=== PATIENT | male | born 1955 | race Caucasian/White ===

== ENCOUNTER 2021-12-03 21:47 | Emergency (ER) | payer BC ==
[~2021-12-03] VITALS: Ht 177.8 cm; Wt 81.6 kg
--- NOTE | 2021-12-03 22:30 | NUR ---
PATIENT BIBRA 85 FROM HOME C/O SLIP AND FELL IN SHOWER +ETOH, MINOR LAC ON L EYE. -THINNERS. PATIENT IS A/O X 3, RR EVEN AND UNLABORED NO SOB NOTED. PATIENT TAKEN TO ER BED 04. PATIENT CONNECTED TO MONITORS.
--- NOTE | 2021-12-03 22:39 | NUR ---
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
--- NOTE | 2021-12-03 23:50 | NUR ---
CALLED PT Rachel, NO ABLE TO PICK PATIENT UP AT THIS TIME. WILL TRY FOR 7AM.
--- NOTE | 2021-12-04 06:36 | NUR ---
CALLED PT Rachel, NO ANSWER
--- NOTE | 2021-12-04 07:25 | NUR ---
RECEIVED ENDORSEMENT FROM TRINO JOHNS. PATIENT AWAKE IN BED. AWAITING FOR TRANSPORTATION TO BE ARRANGED WITH . SAFETY PRECAUTIONS IN PLACE.
--- NOTE | 2021-12-04 08:30 | NUR ---
(PAUL) DROPPED OFF CLOTHES FOR PATIENT
--- NOTE | 2021-12-04 08:35 | NUR ---
Patient discharged to home in stable condition. Written and verbal after care instructions given. Patient verbalizes understanding of instruction.
[2021-12-04 08:47] VITALS: BP 124/66
== END 2021-12-04 08:45 | disposition home or self-care (01) ==
LOC: ER 21:50
DX: S01.112A Laceration without foreign body of left eyelid and periocular area, initial encounter (principal); R51.9 Headache, unspecified; M54.2 Cervicalgia; I10 Essential (primary) hypertension; F10.129 Alcohol abuse with intoxication, unspecified; Y90.9 Presence of alcohol in blood, level not specified; W18.2XXA Fall in (into) shower or empty bathtub, initial encounter; Y93.89 Activity, other specified; Y92.89 Other specified places as the place of occurrence of the external cause; Y99.8 Other external cause status
CPT/HCPCS: 12011; 70450; 72125; 99285; A6403